=== PATIENT | female | born 1980 | race African-American/Black ===

== ENCOUNTER 2019-04-14 15:24 | Emergency (ER) | payer BC ==
[2019-04-14 15:30] VITALS: BP 146/94; PULSE 111; TEMP 102; BMI 47.8
--- NOTE | 2019-04-14 15:31 | PDOC ---
Rapid Medical Evaluation Time Seen by Provider: 04/14/19 15:28 Medical Evaluation: 04/14/19 15:28 CC: bodyaches, fever, chills, headache x4 days PE: OP- WNL. Lungs CTAB. Orders: Tylenol Patient will proceed to ED for further evaluation. Discharge Disposition - Diagnosis Influenza-like symptoms - Referrals - Patient Instructions - Post Discharge Activity
[2019-04-14] MEDS ORDERED: ACETAMINOPHEN 500 MG TABLET (FP) PO ONE (15:59)
[2019-04-14] MEDS ORDERED: ACETAMINOPHEN 500 MG TABLET (FP) ONE (16:04)
--- NOTE | 2019-04-14 16:46 | PDOC ---
History of Present Illness - General Chief Complaint: Cold Symptoms Stated Complaint: FEVER/ DIZZINESS Time Seen by Provider: 04/14/19 15:28 - History of Present Illness Initial Comments: 04/14/19 16:45 38-year-old female without comorbidities presents for flulike symptoms x4 days Past History - Past Medical History Allergies/Adverse Reactions: Allergies Allergy/AdvReac Type Severity Reaction Status Date / Time No Known Allergies Allergy Verified 04/14/19 15:30 COPD: No - Psycho Social/Smoking Cessation Hx Smoking History: Never smoked Review of Systems - Review of Systems Constitutional: Yes: Fever HEENTM: Yes: Nose Congestion Respiratory: Yes: Cough *Physical Exam - Vital Signs Last Vital Signs Temp Pulse Resp BP Pulse Ox 102 F H 111 H 18 146/94 99 04/14/19 15:26 04/14/19 15:26 04/14/19 15:26 04/14/19 15:26 04/14/19 15:26 - Physical Exam 04/14/19 16:45 GENERAL: The patient is awake, alert, and fully oriented, in no acute distress. HEAD: Normal with no signs of trauma. EYES: sclera anicteric, conjunctiva clear. ENT: Ears normal tympanic membranes normal oropharynx clear uvula midline NECK: Normal range of motion LUNGS: Breath sounds equal, clear to auscultation bilaterally. No wheezes, and no crackles. HEART: S1 and S2 without murmur, rub or gallop. ABDOMEN: Soft, nontender, normoactive bowel sounds. No guarding, no rebound. No masses. EXTREMITIES: Normal range of motion, no edema. No clubbing or cyanosis. No cords, erythema, or tenderness. NEUROLOGICAL: Cranial nerves II through XII grossly intact. Normal speech, normal gait. PSYCH: Normal mood, normal affect. SKIN: Warm, Dry, normal turgor, no rashes or lesions noted. ED Treatment Course - Medications Given in the ED: ED Medications Discontinued Medications Generic Name Dose Route Start Last Admin Trade Name Freq PRN Reason Stop Dose Admin Acetaminophen 1,000 mg 04/14/19 15:59 04/14/19 16:08 Tylenol - PO 04/14/19 16:00 1,000 mg ONCE ONE Administration Medical Decision Making - Medical Decision Making 04/14/19 16:45 Influenza swab negative most likely a viral upper respiratory infection. Supportive care with Tylenol and Motrin follow-up with primary care physician. Discharge - Discharge Information Problems reviewed: Yes Clinical Impression/Diagnosis: Influenza-like symptoms, Viral URI with cough Condition: Stable Disposition: HOME - Admission No - Follow up/Referral Referrals: Eliana Steel MD [Primary Care Provider] - - Patient Discharge Instructions Patient Printed Discharge Instructions: DI for Viral Upper Respiratory Infection -- Adult Additional Instructions: Supportive care with Tylenol and Motrin for fever as directed. Return to the emergency room for worsening symptoms. Without fail please follow-up with your primary care physician in 2 to 3 days for further evaluation and treatment options. - Post Discharge Activity
== END 2019-04-14 17:00 | disposition home or self-care (01) ==
LOC: JERFT 15:24
DX: J11.1 Influenza due to unidentified influenza virus with other respiratory manifestations (principal)
CPT/HCPCS: 87804; 99281-25

== ENCOUNTER 2019-04-16 19:49 | Emergency (ER) | payer OTHER, BC ==
[2019-04-16 19:59] VITALS: TEMP 100.1; BMI 47.8
[2019-04-16] MEDS ORDERED: ACETAMINOPHEN 500 MG TABLET (FP) PO ONE (21:22)
[2019-04-16] MEDS ORDERED: SODIUM CHLORIDE 0.9% 500 ML INFUS.BAG IV ONE (21:27)
[2019-04-16] MEDS ORDERED: KETOROLAC TROMETHAMINE 30 MG/1 ML VIAL IVPUSH ONE (21:27)
[2019-04-16] MEDS ORDERED: ACETAMINOPHEN 1000 MG/100 ML VIAL (NON FORMULARY) IVPB ONE (21:27)
--- NOTE | 2019-04-16 21:48 | PDOC ---
History of Present Illness - General Chief Complaint: Cold Symptoms Stated Complaint: FEVER Time Seen by Provider: 04/16/19 21:20 - History of Present Illness Initial Comments: 04/16/19 21:46 38-year-old female presents for reevaluation of flulike symptoms. Seen a few days ago in the emergency room diagnosed with viral syndrome she returns for worsening symptoms Past History - Past Medical History Allergies/Adverse Reactions: Allergies Allergy/AdvReac Type Severity Reaction Status Date / Time No Known Allergies Allergy Verified 04/16/19 19:59 COPD: No - Psycho Social/Smoking Cessation Hx Smoking History: Never smoked Have you smoked in the past 12 months: No Information on smoking cessation initiated: No Hx Alcohol Use: No Drug/Substance Use Hx: No Review of Systems - Review of Systems Constitutional: Yes: Chills, Fever, Malaise, Night Sweats HEENTM: Yes: Nose Congestion Respiratory: Yes: Cough Neurological: Yes: Weakness *Physical Exam - Vital Signs Last Vital Signs Temp Pulse Resp BP Pulse Ox 100.1 F H 101 H 21 H 110/80 98 04/16/19 19:55 04/16/19 19:55 04/16/19 19:55 04/16/19 19:55 04/16/19 19:55 - Physical Exam 04/16/19 21:47 GENERAL: The patient is awake, alert, and fully oriented, in no acute distress. HEAD: Normal with no signs of trauma. EYES: sclera anicteric, conjunctiva clear. ENT: Ears normal tympanic membranes normal oropharynx clear uvula midline NECK: Normal range of motion LUNGS: Breath sounds equal, clear to auscultation bilaterally. No wheezes, and no crackles. HEART: S1 and S2 without murmur, rub or gallop. ABDOMEN: Soft, nontender, normoactive bowel sounds. No guarding, no rebound. No masses. EXTREMITIES: Normal range of motion, no edema. No clubbing or cyanosis. No cords, erythema, or tenderness. NEUROLOGICAL: Cranial nerves II through XII grossly intact. Normal speech, normal gait. PSYCH: Normal mood, normal affect. SKIN: Warm, Dry, normal turgor, no rashes or lesions noted. Medical Decision Making - Medical Decision Making 04/16/19 21:47 Patient is feeling ill when she lays back. Laboratory work ordered fluids and Tylenol IV was ordered as well. Repeat flu swab was done. I will transfer this patient to the main emergency room. Discharge - Discharge Information Problems reviewed: Yes Clinical Impression/Diagnosis: Influenza-like symptoms - Follow up/Referral Referrals: Eliana Steel MD [Primary Care Provider] - - Patient Discharge Instructions - Post Discharge Activity
[2019-04-16 22:00] LABS: BASO % 1.4 % (0-2.0); EOS % 0.9 % (0-4.5); HEMATOCRIT 35.2 % (32.4-45.2); HEMOGLOBIN 11.4 GM/dL (10.7-15.3); LYMPH % 9.8 % (8-40); MCH 22.6 pg (25.7-33.7); MCHC 32.5 g/dl (32.0-36.0); MEAN CELL VOLUME 69.7 fl (80-96); MONO % 10.9 % (3.8-10.2); PLATELET COUNT 280 K/MM3 (134-434); RBC 5.05 M/mm3 (3.60-5.2); RDW 16.8 % (11.6-15.6); WHITE BLOOD COUNT 15.7 K/mm3 (4.0-10.0)
--- NOTE | 2019-04-16 22:39 | PDOC ---
*Physical Exam - Vital Signs Last Vital Signs Temp Pulse Resp BP Pulse Ox 100.1 F H 101 H 21 H 110/80 98 04/16/19 19:55 04/16/19 19:55 04/16/19 19:55 04/16/19 19:55 04/16/19 19:55 - Physical Exam General Appearance: Yes: Nourished, Appropriately Dressed. No: Apparent Distress Respiratory/Chest: positive: Lungs Clear, Normal Breath Sounds, Other ( decreased inspiration at the bases.). negative: Respiratory Distress, Accessory Muscle Use Cardiovascular: positive: Regular Rhythm, Regular Rate, S1, S2 (present). negative: Murmur <Tonya Aguilar - Last Filed: 04/17/19 01:28> - Vital Signs Last Vital Signs Temp Pulse Resp BP Pulse Ox 100.1 F H 98 H 16 119/72 100 04/16/19 19:55 04/17/19 01:25 04/17/19 01:25 04/17/19 01:25 04/17/19 01:25 <Priya Clement - Last Filed: 04/17/19 04:21> ED Treatment Course - LABORATORY CBC & Chemistry Diagram: 04/16/19 21:30 04/16/19 21:30 - ADDITIONAL ORDERS Additional order review: Laboratory Results 04/16/19 04/16/19 21:30 21:30 Sodium Cancelled Potassium Cancelled Chloride Cancelled Carbon Dioxide Cancelled Anion Gap Cancelled BUN Cancelled Creatinine Cancelled Est GFR (CKD-EPI)AfAm Cancelled Est GFR (CKD-EPI)NonAf Cancelled Random Glucose Cancelled Calcium Cancelled Total Bilirubin Cancelled AST Cancelled ALT Cancelled Alkaline Phosphatase Cancelled Total Protein Cancelled Albumin Cancelled Serum , Qual Cancelled 04/16/19 21:30 RBC 5.05 MCV 69.7 L MCHC 32.5 RDW 16.8 H MPV 8.0 Neutrophils % 77.0 Lymphocytes % 9.8 Monocytes % 10.9 H Eosinophils % 0.9 Basophils % 1.4 - RADIOLOGY Radiology Studies Ordered: Category Date Time Status CHEST PA & LAT [RAD] Stat Radiology 04/16/19 22:37 Ordered <Tonya Aguilar - Last Filed: 04/17/19 01:28> - LABORATORY CBC & Chemistry Diagram: 04/16/19 21:30 04/17/19 01:22 - ADDITIONAL ORDERS Additional order review: Laboratory Results 04/17/19 04/16/19 04/16/19 01:19 21:30 21:30 WBC RBC Hgb Hct MCV MCH MCHC RDW Plt Count MPV Absolute Neuts (auto) Neutrophils % Lymphocytes % Monocytes % Eosinophils % Basophils % Nucleated RBC % Sodium Potassium Chloride Carbon Dioxide Anion Gap BUN Creatinine Est GFR (CKD-EPI)AfAm Est GFR (CKD-EPI)NonAf Random Glucose Calcium Total Bilirubin AST ALT Alkaline Phosphatase Total Protein Albumin Serum , Qual Negative Cancelled Influenza A (Rapid) Negative Influenza B (Rapid) Negative 04/16/19 04/16/19 21:30 21:30 WBC 15.7 H RBC 5.05 Hgb 11.4 Hct 35.2 MCV 69.7 L MCH 22.6 L MCHC 32.5 RDW 16.8 H Plt Count 280 MPV 8.0 Absolute Neuts (auto) 12.1 H Neutrophils % 77.0 Lymphocytes % 9.8 Monocytes % 10.9 H Eosinophils % 0.9 Basophils % 1.4 Nucleated RBC % 0 Sodium Cancelled Potassium Cancelled Chloride Cancelled Carbon Dioxide Cancelled Anion Gap Cancelled BUN Cancelled Creatinine Cancelled Est GFR (CKD-EPI)AfAm Cancelled Est GFR (CKD-EPI)NonAf Cancelled Random Glucose Cancelled Calcium Cancelled Total Bilirubin Cancelled AST Cancelled ALT Cancelled Alkaline Phosphatase Cancelled Total Protein Cancelled Albumin Cancelled Serum , Qual Influenza A (Rapid) Influenza B (Rapid) 04/16/19 21:30 RBC 5.05 MCV 69.7 L MCHC 32.5 RDW 16.8 H MPV 8.0 Neutrophils % 77.0 Lymphocytes % 9.8 Monocytes % 10.9 H Eosinophils % 0.9 Basophils % 1.4 - Medications Given in the ED: ED Medications Discontinued Medications Generic Name Dose Route Start Last Admin Trade Name Freq PRN Reason Stop Dose Admin Acetaminophen 1,000 mg 04/16/19 21:22 04/17/19 00:02 Tylenol - PO 04/16/19 21:23 Not Given ONCE ONE Acetaminophen 1,000 mg 04/16/19 21:27 04/16/19 23:04 Ofirmev Injection - IVPB 04/16/19 21:28 1,000 mg ONCE ONE Administration Albuterol/Ipratropium 1 amp 04/17/19 01:35 04/17/19 02:13 Duoneb - NEB 04/17/19 01:36 1 amp ONCE ONE Administration Azithromycin 500 mg 04/17/19 01:35 04/17/19 02:13 Zithromax - PO 04/17/19 01:36 500 mg ONCE ONE Administration Sodium Chloride 1,000 ml 04/16/19 21:27 04/16/19 23:04 Normal Saline - IV 04/16/19 21:28 1,000 ml ONCE ONE Administration <Priya Clement Simone - Last Filed: 04/17/19 04:21> Medical Decision Making - Medical Decision Making 04/17/19 01:31 Signout was received from DALIA Stein at 2200 hrs. on 04/16/2019 Patient with a WBC count of 15, chest x-ray with a possible early pneumonia Lung sounds are clear to auscultation bilaterally, fair inspiration at the bases Flu negative We will treat as an early pneumonia. First dose of azithromycin and DuoNeb given in the ER Discharge home with primary care follow-up and antibiotics I discussed the physical exam findings, ancillary test results and final diagnoses with the patient. I answered all of the patient's questions. The patient was satisfied with the care received and felt comfortable with the discharge plan and treatment plan. The Patient agrees to follow up with the primary care physician/specialist within 24-72 hours. Return precautions were given. <Tonya Aguilar - Last Filed: 04/17/19 01:28> - Medical Decision Making 04/17/19 03:58 The patient was seen and evaluated in conjunction with midlevel provider under my direct supervision, ancillary studies were reviewed. I agree with the plan as outlined DALIA Aguilar. HPI, workup/dispo as outlined. VS reviewed, initially tachy and febrile. given IVF/analgesia/antipyretic. labs with leukocytosis of 15K, lytes - potassium mildly low, repleted with oral tablet, Cr normal preg test neg flu neg. cxr clear, but with atypical sx, treat as PNA. azithromycin x 5 days, first dose now. repeat VS much improved, tachy down, afebrile, LGF after treatment. anticipate discharge, pcp followup, return precautions hydration, supportive care, rest, work note 04/17/19 04:10 04/17/19 04:11 <Priya Clement - Last Filed: 04/17/19 04:21> Discharge - Discharge Information Problems reviewed: Yes - Admission No <Tonya Aguilar - Last Filed: 04/17/19 01:28> - Admission No <Priya Clement - Last Filed: 04/17/19 04:21> - Discharge Information Clinical Impression/Diagnosis: Influenza-like symptoms, Cough, Hypokalemia Condition: Stable Disposition: HOME - Additional Discharge Information Prescriptions: Albuterol Sulfate Inhaler - [Ventolin HFA Inhaler -] 1 - 2 inh PO Q4H #1 inhaler Azithromycin 250 mg PO DAILY #4 tablet Methylprednisolone [Medrol Dose Juan] 4 mg PO ASDIR #21 tablet - Follow up/Referral Referrals: Eliana Steel MD [Primary Care Provider] - - Patient Discharge Instructions Patient Printed Discharge Instructions: DI for Pneumonia -- Adult, DI for Hypokalemia, DI for Common Cold Additional Instructions: You were evaluated for your flu like symptoms Your flu test was negative Your chest x-ray may show an early pneumonia. Please take the azithromycin as directed. If you are still breast feeding, please pump your breast milk and throw it away while taking the antibiotics. Take the albuterol inhaler as needed for shortness of breath Please follow up with your primary care doctor tomorrow. Return to the ER for worsening pain, shortness of breath, difficulty breathing or if you have any changes in your symptomsr - Post Discharge Activity Work/Back to School Note: Back to Work
[2019-04-16] MEDS ORDERED: ACETAMINOPHEN INJECTION 100 ML IVPB ONE (22:52)
[2019-04-16] MEDS ORDERED: ACETAMINOPHEN 325 MG TABLET (FP) ONE (23:37)
[2019-04-17] MEDS ORDERED: AZITHROMYCIN 250 MG TABLET PO ONE (01:35)
[2019-04-17] MEDS ORDERED: ALBUTEROL SO4 2.5/IPRATROPIUM 0.5 INH SOL 3 ML VIAL.NEB. NEB ONE ×2 (01:35→01:57)
[2019-04-17] MEDS ORDERED: AZITHROMYCIN 250 MG TABLET ONE (01:57)
[2019-04-17 04:01] LABS: ALBUMIN 2.2 g/dl (3.4-5.0); BILIRUBIN,TOTAL 0.3 mg/dL (0.2-1); BLOOD UREA NITROGEN 5.6 mg/dL (7-18); CREATININE 0.5 mg/dL (0.55-1.3); POTASSIUM 3.1 mmol/L (3.5-5.1); TOT PROT 5.5 g/dl (6.4-8.2)
[2019-04-17] MEDS ORDERED: POTASSIUM CHLORIDE TABS 20 MEQ TABLET.ER (FP) PO ONE ×2 (04:10→04:21)
[2019-04-17 04:37] VITALS: BP 122/78; PULSE 80
[2019-04-17 05:01] LABS: CALCIUM 6.4 mg/dL (8.5-10.1)
== END 2019-04-17 04:16 | disposition home or self-care (01) ==
LOC: JER 19:49
PROC: 3E033NZ Introduction of Analgesics, Hypnotics, Sedatives into Peripheral Vein, Percutaneous Approach (ICD-10-PCS; principal; 2019-04-16)
PROC: 3E0F7GC Introduction of Other Therapeutic Substance into Respiratory Tract, Via Natural or Artificial Opening (ICD-10-PCS; 2019-04-16)
DX: J11.1 Influenza due to unidentified influenza virus with other respiratory manifestations (principal)
CPT/HCPCS: 36415; 71046-TC-FY; 80053; 84703; 85025; 87804; 99284-25; J0131